=== PATIENT | female | born 1980 | race Caucasian/White ===

== ENCOUNTER 2017-04-01 19:11 | Emergency (ER) | payer MEDICAID ==
[~2017-04-01] VITALS: Ht 152.4 cm; Wt 55.0 kg
[~2017-04-01 19:11] MED LIST: ONDA8TAB9 PO; PROC-8
[2017-04-01] MEDS ORDERED: BUPIVAcaine 0.5% inj/PF 30 ml vial IJ ONE (20:35)
[2017-04-01] MEDS ORDERED: TETanus/Pertussis (Acell)/Diphther VAC/PF (Tdap-Adult) 0.5ml syringe IM ONE (20:35)
[2017-04-01 21:37] VITALS: BP 135/78
== END 2017-04-01 21:20 | disposition home or self-care (01) ==
LOC: ER 19:11
DX: S61.011A Laceration without foreign body of right thumb without damage to nail, initial encounter (principal); W45.8XXA Other foreign body or object entering through skin, initial encounter; Y93.89 Activity, other specified; Y92.89 Other specified places as the place of occurrence of the external cause; Y99.8 Other external cause status
CPT/HCPCS: 12001; 90471; 90715; 99283; J3490